=== PATIENT | female | born 1985 | race Caucasian/White ===

== ENCOUNTER 2021-01-04 23:03 | Observation (INO) | payer BC, OTHER ==
[2021-01-04 23:31] LABS: BASO % 0.9 % (0-2.0); EOS % 3.5 % (0-4.5); HEMATOCRIT 40.5 % (32.4-45.2); HEMOGLOBIN 14.4 GM/dL (10.7-15.3); LYMPH % 47.6 % (8-40); MCH 33.9 pg (25.7-33.7); MCHC 35.5 g/dl (32.0-36.0); MEAN CELL VOLUME 95.6 fl (80-96); MEAN PLT VOLUME 8.2 fl (7.5-11.1); MONO % 6.7 % (3.8-10.2); NEUT % 41.3 % (42.8-82.8); PLATELET COUNT 347 K/MM3 (134-434); RBC 4.24 M/mm3 (3.60-5.2); RDW 12.6 % (11.6-15.6); WHITE BLOOD COUNT 8.1 K/mm3 (4.0-10.0)
[2021-01-04 23:46] LABS: INR 0.95 (0.83-1.09); PROTHROMBIN TIME (PATIENT) 11.5 SEC (9.7-13.0)
[2021-01-04 23:49] LABS: ACTIVATED PTT 30.9 SECONDS (25.2-36.5)
[2021-01-04 23:52] LABS: CALCIUM 9.5 mg/dL (8.5-10.1)
[2021-01-04 23:53] LABS: ALBUMIN 4.1 g/dl (3.4-5.0); BLOOD UREA NITROGEN 9.9 mg/dL (7-18)
[2021-01-04 23:56] LABS: CREATININE 0.9 mg/dL (0.55-1.3)
[2021-01-04 23:58] LABS: BILIRUBIN,TOTAL 0.4 mg/dL (0.2-1); TOT PROT 7.4 g/dl (6.4-8.2)
[2021-01-05 00:56] LABS: URINE APPEARANCE CLEAR; URINE BILIRUBIN NEGATIVE (NEGATIVE); URINE COLOR YELLOW; URINE GLUCOSE (UA) NEGATIVE (NEGATIVE); URINE KETONE NEGATIVE (NEGATIVE); URINE LEUK ESTERASE NEGATIVE (NEGATIVE); URINE NITRITE NEGATIVE (NEGATIVE); URINE PROTEIN NEGATIVE (NEGATIVE); URINE UROBILINOGEN 0.2 mg/dL (0.2-1.0)
[2021-01-05 01:02] LABS: METHADONE, UR NEGATIVE ng/ml (CUTOFF=300); OPIATES, URI NEGATIVE ng/ml (CUTOFF=300); URINE BARBITURATES NEGATIVE ng/ml (CUTOFF=200); URINE BENZODIAZEPINES NEGATIVE ng/ml (CUTOFF=200)
[2021-01-05 01:03] LABS: PHENCYCLIDINE,URINE NEGATIVE ng/ml (CUTOFF=25)
[2021-01-05 01:41] LABS: COCAINE, UR NEGATIVE ng/ml (CUTOFF=300); URINE AMPHETAMINES NEGATIVE ng/ml (CUTOFF=500)
[2021-01-05] MEDS ORDERED: ACETAMINOPHEN 325 MG TABLET (FP) PO ONE (04:47)
[2021-01-05] MEDS ORDERED: SODIUM CHLORIDE 0.9% 500 ML INFUS.BAG IV ONE (04:47)
[2021-01-05] MEDS ORDERED: ONDANSETRON 4 MG/2 ML VIAL IVPUSH ONE (04:47)
[2021-01-05] MEDS ORDERED: ACETAMINOPHEN 325 MG TABLET (FP) ONE (05:11)
[2021-01-05] MEDS ORDERED: ONDANSETRON 4 MG/2 ML VIAL ONE (05:12)
[2021-01-05] MEDS ORDERED: LACTATED RINGERS SOLUTION 1,000 ML/1,000 ML INFUS.BAG IV STA (07:39)
[2021-01-05] MEDS ORDERED: LORazepam 2 MG/ML SDV VIAL IVPUSH ONE (07:39)
[2021-01-05] MEDS ORDERED: LORazepam 2 MG/ML SDV VIAL ONE (08:05)
[2021-01-05] MEDS ORDERED: clonazePAM 0.5 MG TABLET PO PRN ×2 (10:08→23:00)
[2021-01-05] MEDS ORDERED: clonazePAM 0.5 MG TABLET ONE (12:03)
[2021-01-05 16:19] VITALS: BMI 25.1
[2021-01-06] MEDS ORDERED: IBUPROFEN 400 MG TABLET (FP) PO ONE (00:15)
[2021-01-06] MEDS ORDERED: ACETAMINOPHEN 325 MG TABLET (FP) PO ONE (00:15)
[2021-01-06 07:50] LABS: MAGNESIUM 2.1 mg/dL (1.8-2.4)
[2021-01-06 07:54] LABS: PHOSPHOROUS 3.2 mg/dL (2.5-4.9)
[2021-01-06 09:46] VITALS: TEMP 98
[2021-01-06] MEDS ORDERED: MAGNESIUM SULF 50% (8.12 MEQ/2 ML-1 GM VIAL) IVPB ONE (11:50)
[2021-01-06 14:57] VITALS: BP 130/88; PULSE 90
== END 2021-01-06 17:27 | disposition home or self-care (01) ==
LOC: JER 23:03 → JERBED 01-05 11:33 → J5S 01-05 15:35 → J4W 01-05 21:10
PROVIDERS: ADMIT Internal Medicine
PROC: 3E033NZ Introduction of Analgesics, Hypnotics, Sedatives into Peripheral Vein, Percutaneous Approach (ICD-10-PCS; principal; 2021-01-05)
PROC: 3E033GC Introduction of Other Therapeutic Substance into Peripheral Vein, Percutaneous Approach (ICD-10-PCS; 2021-01-05)
PROC: 3E0337Z Introduction of Electrolytic and Water Balance Substance into Peripheral Vein, Percutaneous Approach (ICD-10-PCS; 2021-01-05)
DX: T43.214A Poisoning by selective serotonin and norepinephrine reuptake inhibitors, undetermined, initial encounter (principal); F41.8 Other specified anxiety disorders; Z91.5 Personal history of self-harm; Z88.8 Allergy status to other drugs, medicaments and biological substances; N80.0 Endometriosis of uterus; F10.129 Alcohol abuse with intoxication, unspecified
CPT/HCPCS: 36415; 70130-TC-FY; 80053; 80307; 81003; 83735; 84100; 85025; 85610; 85730; 93005; 93010; 96361; 96374; 96375; 97116-GP; 97161-GP; 99285-25; C9803; G0378; U0003; U0005

== ENCOUNTER 2023-04-16 21:02 | Emergency (ER) | payer BC, OTHER ==
[2023-04-16 21:10] VITALS: BP 152/92; PULSE 94; RESP 16; TEMP 97.8; BMI 23.7
[2023-04-16] MEDS ORDERED: DIPHTH,PERTUSS(ACELL),TET 0.5 ML DISP.SYRIN IM ONE ×2 (22:00→22:04)
[2023-04-16] MEDS ORDERED: CEPHALEXIN MONOHYDRATE 500 MG CAPSULE (UD) PO ONE (22:01)
[2023-04-16] MEDS ORDERED: ACETAMINOPHEN 500 MG TABLET (FP) PO ONE (22:01)
[2023-04-16] MEDS ORDERED: CEPHALEXIN MONOHYDRATE 500 MG CAPSULE (UD) ONE (22:03)
[2023-04-16] MEDS ORDERED: ACETAMINOPHEN 500 MG TABLET (FP) ONE (22:03)
== END 2023-04-16 23:10 | disposition home or self-care (01) ==
LOC: JERFT 21:02
PROC: 3E0234Z Introduction of Serum, Toxoid and Vaccine into Muscle, Percutaneous Approach (ICD-10-PCS; principal; 2023-04-16)
DX: S61.412A Laceration without foreign body of left hand, initial encounter (principal); W27.4XXA Contact with kitchen utensil, initial encounter; Y93.G1 Activity, food preparation and clean up
CPT/HCPCS: 73130-TC-LT-FY; 87635; 90715; 99284-25